=== PATIENT | male | born 1960 | race Caucasian/White ===

== ENCOUNTER → 2016-09-07 | Outpatient (CLI) | payer OTHER ==
--- NOTE | 2016-09-09 12:04 | RADONC ---
RADIATION ONCOLOGY CONSULTATION NOTE DATE: 09/07/2016 CHART NUMBER: [id number] DIAGNOSIS: Prostate cancer. STAGE: IV, widely metastatic. ECOG PERFORMANCE STATUS: 1 CONSULTATION NOTE: Mr. Blanco is a very pleasant, 56-year-old white male with the diagnosis of widely metastatic adenocarcinoma of the prostate who is presenting to us today for consultation regarding the possibilities of palliative radiation therapy to his spine for painful bony metastatic disease. HISTORY OF PRESENT ILLNESS: The patient is actually well-known to our department and was first seen by us on 11/21/2011. At that time, he presented with a diagnosis of a large B-cell lymphoma for consideration of radiation therapy to his neck, supraclavicular, and infraclavicular regions. We treated the patient for a dose of 1000 cGy in four fractions of 250 cGy each from 11/20/2010 through 11/23/2010. The patient did well with his initial treatments. He was then seen by medical oncology and underwent systemic therapy. He returned to us and received a further 3240 cGy in 18 fractions of 180 cGy each from 05/19/2011 through 06/15/2011. When combined with the previous treatment, this brought the cervical lymph nodes bilaterally to a dose of 4240 cGy. The patient did well and was lost to us for followup. He was followed by his medical oncologist. Apparently, the patient developed severe back pain and was found to have a PSA of 1600. I do not have the results of the biopsy at this time. I received a phone call from Dr. Lela Huerta today reporting that he has multiple pain lesions with some invasion of the spinal column but no evidence at this time of cord compression. He is presenting to us for consideration of urgent radiation therapy to this area. PAST MEDICAL HISTORY: The patient's past medical history is positive as noted above for his lymphoma and previous radiation. In addition, the patient had his forehead kicked by a horse in 1965. He has had a cyst removed at the back of his neck. ALLERGIES: The patient has seasonal allergies but no known drug allergies. SOCIAL HISTORY: The patient had smoked two packs of cigarettes per day for 20 years. He quit in 2010. He drinks alcohol socially. FAMILY HISTORY: The patient's family history is positive for a mother with lung and uterine cancer, a father with lung cancer, and a sister with lung cancer. REVIEW OF SYSTEMS: The patient's review of systems is positive for physical limitations secondary to back pain. He also has some occasional dizziness secondary to his pain medications. He has pain in his low back, his mid back, and his rib areas. He denies nausea, vomiting, fevers, chills, night sweats, diplopia, headaches, anxiety or depression, anorexia, weight loss, visual disturbances, chest pain, urinary or bowel difficulties, or neurological problems. PHYSICAL EXAMINATION: The patient is a well-developed, well-nourished male in no acute distress. HEENT exam is normocephalic, atraumatic. Extraocular movements are intact. There is no palpable cervical, supraclavicular, infraclavicular, axillary, or inguinal lymphadenopathy present. Lungs are clear to auscultation and percussion. Heart has a regular rate and rhythm. Abdomen is benign with no hepatosplenomegaly, masses, or tenderness. Rectal examination reveals a normal anal sphincter tone. Skeletal examination reveals no tenderness to pressure or percussion of the bony skeleton. Extremities reveal no clubbing, cyanosis, or edema. Neurologic exam is grossly intact, as is the remainder of the physical examination. ASSESSMENT: I believe the patient is a candidate for external beam radiation therapy, and I have so informed him. I have discussed with the patient in detail the potential benefits as well as possible acute and chronic sequelae of external beam radiation therapy. We discussed the logistics of treatment planning, simulation, and subsequent fractionated daily radiation treatments. I am in the process of gathering all the necessary information in order to undertake treatment planning. We do have a CD with a copy of his MRIs of the spine, which clearly shows metastatic disease to the spine. We are contacting his other institutions in order to obtain the reports on CT scans as well as his recent bone scan. We are also attempting to obtain the actual scans themselves for evaluation. I have tentatively set up the schedule for this patient to be simulated tomorrow morning and begin treatment planning. If we are able to obtain all the needed information, radiation can begin tomorrow. Dr. Huerta has already started the patient on Decadron 4 mg t.i.d. Thank you for allowing us to participate in the care of this very pleasant gentleman. If I could be of any further assistance or provide you with any information, please feel free to contact me at anytime. cc: MD German Pickering MD *Lela Huerta, DO
== END ==
LOC: M ONCR 13:35
PROVIDERS: ATTEND Radiology Radiation Oncology
DX: C61 Malignant neoplasm of prostate (principal); C79.51 Secondary malignant neoplasm of bone

== ENCOUNTER 2016-09-08 08:54 | Outpatient (RCR) | payer BC, OTHER ==
--- NOTE | 2016-09-09 09:44 | RADONC ---
RADIATION ONCOLOGY SIMULATION NOTE DATE: 09/08/2016 CHART NUMBER: [id number] Mr. Blanco was taken to the CT scan for CT simulation of his spinal field. CT was accomplished without difficulty or discomfort. Radiation treatment planning is underway and radiation treatments will begin subsequently. An immobilization device was created and will be used throughout the course of treatment. It was created without difficulty or discomfort. I was physically present throughout the course of CT simulation.
--- NOTE | 2016-09-13 15:25 | RADONC ---
RADIATION ONCOLOGY PROGRESS NOTE: DATE OF SERVICE: 09/13/2016 Mr. Moore is presently at a dose of 900 cGy to his T8 vertebral body and is tolerating treatments quite well at this point with no complaints related to his radiation therapy. He continues to have pain over that spot but is otherwise doing well. REVIEW OF SYSTEMS: The patients review of systems is positive for continued mid back pain but is otherwise noncontributory. He denies nausea, vomiting, fevers, chills, night sweats, diplopia, headaches, anxiety or depression, anorexia, weight loss, visual disturbances, chest pain, urinary or bowel difficulties, bone pain, or neurological problems. PHYSICAL EXAMINATION: The patient's skin is in excellent condition with no evidence of radiation change present. There is no moist or dry desquamation. The remainder of his physical exam remains unchanged. Mr. Blanco is tolerating treatments quite well and radiation will continue as scheduled. I did discuss with the patient his T5 vertebral body, which is very close to our previously treated field. The treatments, therefore, are risky and I have recommended observing this area for now. Radiation can always be added later if he develops pain in the region. The patient reports he is not having any pain in that area.
== END 2016-09-14 ==
LOC: M ONCR 08:54
PROVIDERS: ATTEND Radiology Radiation Oncology
DX: C79.51 Secondary malignant neoplasm of bone (principal); C61 Malignant neoplasm of prostate

== ENCOUNTER → 2016-09-08 | Outpatient (CLI) | payer BC, OTHER | LOC: M RAD 08:21 | PROVIDERS: ATTEND Radiology Radiation Oncology | DX: C61 Malignant neoplasm of prostate (principal) ==

== ENCOUNTER 2016-09-15 14:27 | Outpatient (RCR) | payer BC, OTHER ==
--- NOTE | 2016-09-21 09:31 | RADONC ---
RADIATION ONCOLOGY PROGRESS NOTE DATE: 09/20/2016 CHART NUMBER: [id number]. Mr. Moore is presently at a dose of 2100 cGy to his T-spine and is tolerating treatments quite well at this point with no complaints related to his radiation therapy. He is having no additional back pain or other problems. REVIEW OF SYSTEMS: The patient's review of systems is positive for some continued back pain, but is otherwise noncontributory. He denies nausea, vomiting, fevers, chills, night sweats, diplopia, headaches, anxiety or depression, anorexia, weight loss, visual disturbances, chest pain, urinary or bowel difficulties, bone pain or neurological problems. PHYSICAL EXAMINATION: The patient's skin is in good condition with no evidence of moist or dry desquamation. The remainder of his physical exam remains unchanged. Mr. Moore is tolerating treatments quite well with a reduction in his back pain. Radiation will continue as scheduled.
--- NOTE | 2016-09-25 08:16 | RADONC ---
RADIATION ONCOLOGY TREATMENT SUMMARY: DATE: 09/24/2016 DIAGNOSIS: Prostate cancer. STAGE: Stage is IV, widely metastatic. ECOG PERFORMANCE STATUS: 1 Mr. Blanco is a very pleasant 56-year-old white male with the diagnosis of widely metastatic adenocarcinoma of prostate who presented to us for consideration of palliative radiation therapy to his thoracic spine for painful bony metastatic disease. We treated the patient to his thoracic spine from the levels of T7 through T9 for a total dose of 3000 cGy delivered in 10 fractions of 300 cGy each over 14 elapsed days from 09/09/2016 through 09/23/2016. The patient's spine was treated on a linear accelerator utilizing an 18 MV photon beam prescribed to a depth of 8 cm. Mr. Blanco tolerated his treatments quite well with no difficulties related to his radiation therapy. He was able to complete therapy as prescribed without interruption. The patient is scheduled see me again in 1 month for further followup. He will also continue to be followed by his other physicians as well. cc: MD German Pickering MD *Olga Kligerman, DO
== END 2016-10-15 ==
LOC: M ONCR 14:27
PROVIDERS: ATTEND Radiology Radiation Oncology
DX: C61 Malignant neoplasm of prostate (principal); C79.51 Secondary malignant neoplasm of bone

== ENCOUNTER → 2016-11-03 | Outpatient (CLI) | payer BC, OTHER ==
--- NOTE | 2016-11-04 06:30 | RADONC ---
RADIATION ONCOLOGY FOLLOWUP NOTE DATE: 11/03/2016 CHART NUMBER: [id number] DIAGNOSIS: Prostate cancer stage IV, widely metastatic. ECOG PERFORMANCE STATUS: 1. FOLLOWUP: Mr. Moore is a very pleasant 56-year-old white male with the diagnosis of widely metastatic adenocarcinoma of the prostate who is presenting to us today for routine followup visit 1 month post completion of palliative radiation therapy to his thoracic spine. The patient presents today reporting that his pain is markedly improved. He continues to have some back pain, but overall is feeling generally well. The patient's review of systems is positive for some continued back pain for which he is taking pain medications but is otherwise noncontributory. Denies nausea, vomiting, fevers, chills, night sweats, diplopia, headaches, anxiety or depression, anorexia, weight loss, visual disturbances, chest pain, urinary or bowel difficulties, bone pain, or neurological problems. PHYSICAL EXAMINATION: The patient is a well-developed, well-nourished male in no acute distress. HEENT exam is normocephalic, atraumatic. Extraocular movements are intact. There is no palpable cervical, supraclavicular, infraclavicular, axillary, or inguinal lymphadenopathy present. Lungs are clear to auscultation and percussion. Heart has a regular rate and rhythm. Abdomen is benign with no hepatosplenomegaly, masses, or tenderness. Rectal examination reveals a normal anal sphincter tone. Skeletal examination reveals no tenderness to pressure or percussion of the bony skeleton. Extremities reveal no clubbing, cyanosis, or edema. Neurologic exam is grossly intact, as is the remainder of the physical examination. ASSESSMENT: The patient is clinically doing quite well at this point. He is being followed and managed closely by his other physicians and therefore I have set him up for a routine followup in our office in six months' time. He has been instructed to contact me if I can be of any assistance in the meantime should he have any discomfort. cc: MD German Pickering MD *Olga Kligerman,
== END ==
LOC: M ONCR 10:15
PROVIDERS: ATTEND Radiology Radiation Oncology
DX: C61 Malignant neoplasm of prostate (principal); C79.51 Secondary malignant neoplasm of bone

== ENCOUNTER → 2016-12-16 | Outpatient (CLI) | payer BC, OTHER ==
--- NOTE | 2016-12-16 14:28 | RADONC ---
RADIATION ONCOLOGY CONSULTATION NOTE DATE: 12/16/2016 CHART NUMBER: [id number] DIAGNOSIS: Prostate cancer. Stage: IV, widely metastatic. ECOG performance status 1. CONSULTATION NOTE: Mr. Blanco is a very pleasant 56-year-old white male with the diagnosis of widely metastatic adenocarcinoma of the prostate who is presenting to us today for consideration of palliative radiation therapy to his right femur and LS spine region. HISTORY OF PRESENT ILLNESS:: The patient is actually well-known to our department and just completed a course of palliative radiation therapy to the thoracic vertebral bodies from T7 through T9 on 09/24/2016. Since completion of therapy, the treated area has improved significantly. Indeed, all areas that have been treated in the past have remained free of pain. He has recently been complaining of increased pain which he reports as quite severe in his lumbar sacral spine region as well as over his right hip. A bone scan was done on 08/31/2016 which showed increased uptake in the right proximal femur as well as continued prominence in the lumbar spine areas. This uptake was at L2, L5 and S1. The patient is scheduled to initiate chemotherapy in a few weeks. PAST MEDICAL HISTORY: The patient's past medical history is positive for lymphoma. He also had his forehead kicked by a horse in 1965. ALLERGIES: The patient has no known drug allergies. SOCIAL HISTORY: The patient had smoked two packs of cigarettes per day for 20 years. He quit in 2010. He drinks alcohol socially. FAMILY HISTORY The patient's family history is positive for a mother with lung cancer as well as uterine cancer and a father with lung cancer. He also has a sister with lung cancer. REVIEW OF SYSTEMS: The patient's review of systems is positive for right hip and low back pain. It is otherwise noncontributory. Denies nausea, vomiting, fevers, chills, night sweats, diplopia, headaches, anxiety or depression, anorexia, weight loss, visual disturbances, chest pain, urinary or bowel difficulties, bone pain, or neurological problems. PHYSICAL EXAMINATION: The patient is a well-developed, well-nourished male in no acute distress. HEENT exam is normocephalic, atraumatic. Extraocular movements are intact. There is no palpable cervical, supraclavicular, infraclavicular, axillary, or inguinal lymphadenopathy present. Lungs are clear to auscultation and percussion. Heart has a regular rate and rhythm. Abdomen is benign with no hepatosplenomegaly, masses, or tenderness. Skeletal examination reveals no tenderness to pressure or percussion of the bony skeleton. Extremities reveal no clubbing, cyanosis, or edema. Neurologic exam is grossly intact, as is the remainder of the physical examination. ASSESSMENT: Clearly, the patient is a candidate for external beam radiation therapy and I have so informed him. I have discussed with the patient in detail the potential benefits as well as possible acute and chronic sequelae of external beam radiation therapy. We discussed logistics of treatment planning, simulation and subsequent fractionated daily radiation treatments. I have scheduled the patient for the next available simulation slot and radiation treatments will begin without delay. Following completion of radiation, the patient will be scheduled for further evaluation by his medical oncologist for possible initiation of chemotherapy. Thank you for allowing us to participate in the care of this very pleasant gentleman. If I could be of any further assistance or provide you with any information, please free to contact me anytime. As always warm regards. cc: MD German Pickering MD *Lela Huerta, DO LEON
--- NOTE | 2016-12-17 11:07 | RADONC ---
RADIATION ONCOLOGY SIMULATION NOTE DATE: 12/17/2016 CHART NUMBER: [id number] Mr. Blanco was taken to the CT scan today for CT simulation of his lumbosacral as well as femur vega. CT was accomplished without difficulty or discomfort. Radiation treatment planning is underway and radiation treatments will begin subsequently. An immobilization device was created and will be used throughout the course of treatment. I was physically present throughout the course of CT simulation.
== END ==
LOC: M ONCR 10:56
PROVIDERS: ATTEND Radiology Radiation Oncology
DX: C61 Malignant neoplasm of prostate (principal); C79.51 Secondary malignant neoplasm of bone

== ENCOUNTER 2016-12-17 14:46 | Outpatient (RCR) | payer BC, OTHER ==
--- NOTE | 2016-12-27 09:34 | RADONC ---
RADIATION ONCOLOGY PROGRESS NOTE: DATE: 12/27/2016 CHART NUMBER: [id number]. PROGRESS NOTE: Mr. Blanco underwent his first fraction of radiation today to his right hip as well as to his spine. A dose of 300 cGy was delivered to both sites. The patient tolerated his first fraction without difficulty. He has no new difficulties or problems. He is complaining of bone pain. REVIEW OF SYSTEMS: The patient's review of systems is positive for bone pain but is otherwise noncontributory. Denies nausea, vomiting, fevers, chills, night sweats, diplopia, headaches, anxiety or depression, anorexia, weight loss, visual disturbances, chest pain, urinary or bowel difficulties, bone pain, or neurological problems. PHYSICAL EXAMINATION: Clearly there is no radiation change present over the treated vega at this point. The remainder of his physical exam remains unchanged since time of consultation. Mr. Blanco tolerated his first fraction of radiation to the spine as well as to the hip quite well and radiation will continue as scheduled. MTDD
--- NOTE | 2017-01-04 06:57 | RADONC ---
RADIATION ONCOLOGY PROGRESS NOTE: DATE: 01/03/2017 CHART NUMBER: [id number]. PROGRESS NOTE: Mr. Blanco is presently at a dose of 1800 cGy to his right femur as well as to his lumbar sacral spine and is tolerating treatments quite well at this point with no complaints related to his radiation therapy. He has an improvement in the pain over the treated areas. The patient is however, now complaining of pain in his shoulder and contralateral leg. These areas did not hurt in the past. The patient is scheduled for a bone scan as well as CAT scans in [place] this week and will be bringing the results as well as a CD with the actual images to me by the end of the week for evaluation. The patients review of systems is positive for the above as well as for weight loss. It is otherwise non-contributory. Physical exam: The patient's skin shows no radiation change present. The physical is otherwise unchanged except for weight loss. He is aware that we can treat these other areas if there is indeed disease there. MTDD
--- NOTE | 2017-01-11 07:54 | RADONC ---
RADIATION ONCOLOGY PROGRESS NOTE DATE: 01/10/2017 CHART NUMBER: [id number] Mr. Moore is presently at a dose of 2700 centigrade to both his right hip and femur as well as his lumbar sacral spine. He is tolerating treatments quite well and reports a marked improvement in his back pain and hip pain. REVIEW OF SYSTEMS: The patient's review of systems is positive for some residual back pain but this is improving. It is otherwise noncontributory. Denies nausea, vomiting, fevers, chills, night sweats, diplopia, headaches, anxiety or depression, anorexia, weight loss, visual disturbances, chest pain, urinary or bowel difficulties, bone pain, or neurological problems. PHYSICAL EXAMINATION: The patient's skin is in good condition with no evidence of moist or dry desquamation. There is just some mild erythema present. Overall skin is in good condition. The remainder of the physical exam is unchanged. Overall he is tolerating treatments quite well and radiation will continue as scheduled.
--- NOTE | 2017-01-12 10:15 | RADONC ---
RADIATION ONCOLOGY TREATMENT SUMMARY: DATE: 01/12/2017 CHART NUMBER: [id number]. DIAGNOSIS: Prostate cancer. STAGE: IV. ECOG PERFORMANCE STATUS: 1. TREATMENT SUMMARY: Mr. Blanco is a very pleasant, 56-year-old white male with the diagnosis of widely metastatic adenocarcinoma of prostate who presented to us for consideration of palliative radiation therapy to his right hip and femur as well as his spine. We treated the patient to his right hip for a dose of 3000 cGy delivered in 10 fractions of 300 cGy each over 15 elapsed days, from 12/27/2016 through 01/11/2017. The patient's right hip was treated on a linear accelerator utilizing an 18 MV photon beam via anterior and posterior parallel opposed vega. In addition, we treated the patient to his spine from the level of L1 through the SI joints. This region was treated on the linear accelerator utilizing an 18 MV photon beam via anterior and posterior parallel opposed vega. We delivered a dose of 3000 cGy in 10 fractions over 15 elapsed days, from 12/27/2016 through 01/11/2017. We used the above-mentioned posterior field prescribed to a depth of 8 cm. Mr. Blanco tolerated his treatments quite well with no difficulties related to his radiation therapy. Indeed, he did have an improvement in his back pain throughout the course of treatment. I have scheduled the patient see me again in 1 month for further followup. He will also continue to be followed by his other physicians as well. cc: MD Lela Pickering MD Jack Rush, MD
== END 2017-01-14 ==
LOC: M ONCR 14:46
PROVIDERS: ATTEND Radiology Radiation Oncology
DX: C79.51 Secondary malignant neoplasm of bone (principal); C61 Malignant neoplasm of prostate

== ENCOUNTER → 2016-12-17 | Outpatient (CLI) | payer BC, OTHER | LOC: M RAD 10:03 | DX: C85.10 Unspecified B-cell lymphoma, unspecified site (principal) ==

== ENCOUNTER → 2017-02-09 | Outpatient (CLI) | payer BC, OTHER ==
[~2017-02-09] MED LIST: ASPI81TA85 PO; AVEL1TAB3 PO; CALC1TAB26 PO; CYCL10TA PO; DEXA4TA; DEXA4TA PO; FENO160T10 PO; GING500C3 PO; IRON65TA PO; LIDO2.5C15; LIDO2.5C15 TOP; LORA10TA2 PO; LOSA100T5 PO; MAGN250T9 PO; MELO15TA4; MELO15TA4 PO; MIRA33504 PO; MULTTAB23 PO; OMEP20CA3; OMEP20CA3 PO; ONDA4TAB6; ONDA4TAB6 PO; OXYC-405 PO; OXYC-517; OXYC-517 PO; POLY1POW4 PO; PRED1TABL PO; PROAAER10 INH; TURM500C PO; VITA10006 PO; VITA80003 PO
--- NOTE | 2017-02-09 13:55 | RADONC ---
RADIATION ONCOLOGY CONSULTATION NOTE DATE: 02/09/2017 CHART NUMBER: [id number] DIAGNOSIS: Prostate cancer. STAGE: IV. ECOG PERFORMANCE STATUS: 0 CONSULTATION NOTE: Mr. Blanco is a very pleasant 57-year-old white male with the diagnosis of widely metastatic adenocarcinoma of the prostate who is presenting to us today for routine followup visit 1 month post completion of palliative radiation therapy to his right hip. The patient presents today reporting that he is doing quite well with no complaints at this time related to his radiation therapy or disease. He has no having no hip for bone pain. The patient reports complete resolution of the pain in the treated areas. REVIEW OF SYSTEMS: The patient's review of systems is largely noncontributory. He denies nausea, vomiting, fevers, chills, night sweats, diplopia, headaches, anxiety or depression, anorexia, weight loss, visual disturbances, chest pain, urinary or bowel difficulties, bone pain or neurological problems. PHYSICAL EXAMINATION: The patient is a well-developed, well-nourished male in no acute distress. HEENT exam is normocephalic, atraumatic. Extraocular movements are intact. There is no palpable cervical, supraclavicular, infraclavicular, axillary, or inguinal lymphadenopathy present. Lungs are clear to auscultation and percussion. Heart has a regular rate and rhythm. Abdomen is benign with no hepatosplenomegaly, masses, or tenderness. Skeletal examination reveals no tenderness to pressure or percussion of the bony skeleton. Extremities reveal no clubbing, cyanosis, or edema. Neurologic exam is grossly intact as is the remainder of the physical examination. ASSESSMENT: The patient is clinically stable at this time. He is receiving systemic therapy and therefore I have scheduled him for a routine followup in our office in six months' time. He will continue to be followed by his medical oncologist and other physicians in the meantime. cc: MD Lela Pickering MD Jack Rush, MD
== END ==
LOC: M ONCR 11:33
PROVIDERS: ATTEND Radiology Radiation Oncology
DX: C61 Malignant neoplasm of prostate (principal); C79.51 Secondary malignant neoplasm of bone

== ENCOUNTER 2017-04-13 05:27 | Inpatient (IN) | payer BC, OTHER ==
[~2017-04-13] VITALS: Ht 180.3 cm; Wt 113.5 kg
[2017-04-13] MEDS ORDERED: PRED1TABL PO ×2 (05:48→08:53)
[2017-04-13] MEDS ORDERED: MELO15TA4 (05:48)
[2017-04-13] MEDS ORDERED: PROAAER10 INH (05:48)
[2017-04-13] MEDS ORDERED: ONDA4TAB6 (05:48)
[2017-04-13] MEDS ORDERED: LIDO2.5C15 (05:48)
[2017-04-13] MEDS ORDERED: OMEP20CA3 (05:48)
[2017-04-13] MEDS ORDERED: OXYC-405 PO ×2 (05:48→08:53)
[2017-04-13] MEDS ORDERED: OXYC-517 (05:48)
[2017-04-13] MEDS ORDERED: DEXA4TA (05:48)
[2017-04-13] MEDS ORDERED: LOSA100T5 PO ×2 (05:48→09:00)
[2017-04-13] MEDS ORDERED: POLY1POW4 PO (05:48)
[2017-04-13] MEDS ORDERED: FENO160T10 PO ×2 (05:48→08:53)
[2017-04-13] MEDS ORDERED: NS 500 ML IV ONE (06:30)
[2017-04-13] MEDS ORDERED: ACETAMINOPHEN 325 MG TAB PO ONE (06:30)
[2017-04-13 06:46] LABS: ABG BASE EXCESS 3.4 (-2.0-2.0); ABG HCO3 26.1 MEQ/L (22.0-26.0); ABG PARTIAL PRESSURE O2 77.7 mmHg (75.0-100.0); ABG STANDARD HCO3 27.5 MEQ/L (22.0-26.0); ABG TOTAL CO2 27.1 MEQ/L (22.0-29.0)
[2017-04-13 06:47] LABS: BASO % 0.2 % (0.0-1.0); EOS % 0.1 % (0.0-3.0); LYMPH % 3.1 % (24.0-44.0); MEAN CORPUSCULAR HEMOGLOBIN 26.2 pg (27.0-33.0); MEAN CORPUSCULAR HGB CONC 30.6 g/dl (32.0-36.5); MEAN CORPUSCULAR VOLUME 85.5 fl (80.0-96.0); MONO # 0.5 10^3/uL (0.0-0.8); MONO % 4.7 % (0.0-5.0); NEUTROPHILS % 84.6 % (36.0-66.0); PLATELET COUNT, AUTOMATED 391 10^3/uL (150-450); RED CELL DISTRIBUTION WIDTH 18.7 % (11.5-14.5); WHITE BLOOD COUNT 10.7 10^3/uL (4.0-10.0)
[2017-04-13 06:54] LABS: IMMATURE GRANULOCYTE % 7.3 % (0-0); LYMPH # 0.3 10^3/uL (1.5-4.5)
[2017-04-13 07:08] LABS: ALBUMIN 2.9 GM/DL (3.2-5.2); ALBUMIN/GLOBULIN RATIO 0.88 (1.00-1.93); ALKALINE PHOSPHATASE 99 U/L (45-117); ALT/SGPT 29 U/L (12-78); ANION GAP 8 MEQ/L (8-16); AST/SGOT 146 U/L (15-37); BILIRUBIN,DIRECT 0.1 MG/DL (0.0-0.2); BILIRUBIN,TOTAL 0.2 MG/DL (0.2-1.0); BLOOD UREA NITROGEN 24 MG/DL (7-18); CALCIUM LEVEL 8.6 MG/DL (8.5-10.1); CARBON DIOXIDE LEVEL 27 MEQ/L (21-32); CHLORIDE LEVEL 100 MEQ/L (98-107); CREATININE FOR GFR 0.85 MG/DL (0.70-1.30); GLOMERULAR FILTRATION RATE > 60.0 (>56); GLUCOSE, FASTING 211 MG/DL (70-105); POTASSIUM SERUM 4.5 MEQ/L (3.5-5.1); SODIUM LEVEL 135 MEQ/L (136-145); TOTAL PROTEIN 6.2 GM/DL (6.4-8.2)
--- NOTE | 2017-04-13 07:37 | REP ---
Clinical: Fever and dyspnea. Technique: PA and lateral. Comparison: 06/14/2008. Findings: Mediastinum and cardiac silhouette are normal. [id number] with tip in the SVC. Lung vega demonstrate chronic-appearing interstitial changes superimposed left lower lobe atelectasis and/or infiltrate cannot be excluded. No effusion. No pneumothorax. Skeletal structures are intact. Impression: Cannot exclude chronic changes with superimposed basilar atelectasis/infiltrate (left greater than right). Signed by Markell Rutherford MD 04/13/2017 07:28 A
[2017-04-13] MEDS ORDERED: oxyCODONE 10 MG CR TAB PO ONE (08:15)
[2017-04-13] MEDS ORDERED: oxyCODONE 40 MG CR TAB PO ONE (08:15)
[2017-04-13] MEDS ORDERED: SODIUM CHLORIDE 0.9% 1000 ML IV ONE (08:15)
[2017-04-13] MEDS ORDERED: MOXIFLOXACIN HCL 400 MG in APPROPRIATE DILUENT 1 EA IV ONE (08:30)
[2017-04-13] MEDS ORDERED: ASPI81TA85 PO (08:53)
[2017-04-13] MEDS ORDERED: VITA80003 PO (08:53)
[2017-04-13] MEDS ORDERED: MELO15TA4 PO (08:53)
[2017-04-13] MEDS ORDERED: DEXA4TA PO (08:53)
[2017-04-13] MEDS ORDERED: TURM500C PO (08:53)
[2017-04-13] MEDS ORDERED: LORA10TA2 PO (08:53)
[2017-04-13] MEDS ORDERED: GING500C3 PO (08:53)
[2017-04-13] MEDS ORDERED: OXYC-517 PO (08:53)
[2017-04-13] MEDS ORDERED: VITA10006 PO (08:53)
[2017-04-13] MEDS ORDERED: IRON65TA PO (08:53)
[2017-04-13] MEDS ORDERED: MAGN250T9 PO (08:55)
[2017-04-13] MEDS ORDERED: MIRA33504 PO (08:55)
[2017-04-13] MEDS ORDERED: OMEP20CA3 PO (08:56)
[2017-04-13] MEDS ORDERED: MULTTAB23 PO (08:56)
[2017-04-13] MEDS ORDERED: MOXIFLOXACIN HCL 400 MG in APPROPRIATE DILUENT 1 EA IV SCH (09:00)
[2017-04-13] MEDS ORDERED: LIDO2.5C15 TOP (09:02)
[2017-04-13] MEDS ORDERED: ONDA4TAB6 PO (09:03)
[2017-04-13] MEDS ORDERED: CALC1TAB26 PO (09:03)
[2017-04-13] MEDS ORDERED: EMLA CREAM 5GM (LIDOCAINE/PRILOCAINE) TOP PRN (09:15)
[2017-04-13] MEDS ORDERED: ONDANSETRON 4 MG ORAL DISINTEGRATING TAB (S0181) PO PRN (09:15)
[2017-04-13] MEDS ORDERED: MIRALAX *UNIT DOSE* 17GM PACKET PO PRN (09:15)
[2017-04-13] MEDS ORDERED: oxyCODONE 5MG TAB PO PRN (09:15)
[2017-04-13] MEDS ORDERED: ALBUTEROL 90 MCG/ACT 8GM HFA INHALER INH PRN (09:15)
[2017-04-13 11:40] VITALS: BP 165/91
[2017-04-13] MEDS: ASPIRIN 81 MG ENTERIC TAB PO SCH (12:15)
[2017-04-13] MEDS: ASCORBIC ACID 500 MG TAB PO SCH (12:15)
[2017-04-13] MEDS: FERROUS SULFATE 325MG TAB PO SCH (12:15)
[2017-04-13] MEDS: OMEPRAZOLE 20 MG CAP PO SCH (12:15)
[2017-04-13] MEDS: hydroCHLOROthiazide 12.5 MG CAPSULE PO SCH (12:16)
[2017-04-13] MEDS: MAGNESIUM OXIDE 400 MG TAB (MAG-OX) PO SCH (12:16)
[2017-04-13] MEDS: LOSARTAN 50 MG TAB PO SCH (12:17)
[2017-04-13] MEDS: LORATADINE 10 MG TAB PO SCH (12:17)
[2017-04-13] MEDS ORDERED: CYCLOBENZAPRINE 10 MG TAB PO PRN (13:15)
[2017-04-13] MEDS: MELOXICAM (MOBIC) 7.5 MG TAB PO SCH (13:55)
[2017-04-13] MEDS: ENOXAPARIN 40 MG/0.4 ML SYRINGE (J1650) SC SCH (13:55)
[2017-04-13 14:00] VITALS: BP 143/71
--- NOTE | 2017-04-13 18:46 | HPE ---
DATE OF ADMISSION: 04/13/2017 PRIMARY CARE PHYSICIAN: Dr. German Mcdonald ADMITTING PHYSICIAN: Dr. Joleen Avila CHIEF COMPLAINT: Dyspnea and generalized pain. HISTORY OF PRESENT ILLNESS: This is a 57-year-old man with a history of metastatic prostate cancer currently being treated with chemotherapy, who received his chemotherapy yesterday and then overnight developed shallow breathing and subjective fevers. His states that he also looked red in the face. He was brought to the emergency department for evaluation where he was noted to have possible bibasilar infiltrate versus atelectasis, left greater than right, and an elevated white blood cell count of 10.7. The emergency room physician consulted with his oncologist, Dr. Huerta , who recommended admission and treatment for pneumonia with moxifloxacin. At the time of my evaluation, patient states he feels tired and has chronic pain in his hips, knees and shoulders. Otherwise he denies any nausea, vomiting, fevers, chills. Denies weakness. He does admit to a generalized malaise. MEDICAL HISTORY: 1. History of lymphoma, in remission. 2. Prostate cancer with metastases status post radiation to back and hips. Currently undergoing chemotherapy. 3. Thyroid nodule. 4. Allergies. 5. Asthma. 6. Impaired glucose tolerance. 7. Anemia due to chemotherapy. SURGICAL HISTORY: 1. Port insertion November 2010. 2. Thyroid biopsy . 3. Lymph node biopsy November 2010. 4. Plastic surgery to forehead as a child after being kicked by a horse. 5. Mohs surgery for basal cell carcinoma on right nose. 6. Port insertion on December 2016. HOME MEDICATIONS: - fenofibrate 160 mg by mouth daily - losartan hydrochlorothiazide 100/25 mg talk half tablet by mouth daily - omeprazole 20 mg by mouth twice daily - multivitamin one tablet by mouth daily - vitamin C 500 mg by mouth daily - calcium with Vitamin D one tablet by mouth daily - aspirin 81 mg by mouth daily - loratadine 10 mg by mouth once daily as needed for allergies - cyclobenzaprine 10 mg three times daily as needed for muscle spasm - Prednisone 4 mg twice a day - Dexamethasone 4 mg two tablets twice a day on the day of and after chemotherapy - Vitamin A 8000 units by mouth daily - iron 325 mg one tablet by mouth daily - magnesium 250 mg by mouth daily - Lupron intramuscular injection one every three months - Zofran 4 mg every 6 hours as needed for nausea - OxyContin 40 mg every 12 hours - oxycodone 4 mg every 4 hours as needed for pain - Zometa 4 mg per 100 mL solution IV every three months - Pro Air two puffs as needed every 4 hours - meloxicam 15 mg one tablet by mouth daily - Aranesp was started on 04/12/2017 and patient states he is to get this every three weeks - Taxotere chemotherapy every three weeks FAMILY HISTORY: Father of lung cancer with metastases to his brain and mother of lung cancer metastases. SOCIAL HISTORY: Patient is a former smoker who quit in November 2010, prior to that he smoked two packs per day for 20 years. He states he has an occasional alcohol drink a couple times a month. He denies any drug use. ALLERGIES: LIPITOR, reaction is myalgias. GEMFIBROZIL, reaction is myalgias. REVIEW OF SYSTEMS: GENERAL: Admits to malaise, subjective fevers and chills. ENT: Denies throat pain, ear pain, rhinorrhea. NECK: Denies lymphadenopathy. CARDIOVASCULAR: Denies chest pain, palpitations, leg edema. PULMONARY: Admits to shallow breathing and dyspnea, though none at present; admits to occasional nonproductive cough. Denies wheezing. GASTROINTESTINAL: Denies nausea, vomiting, constipation, diarrhea or blood ins tool. : Denies difficult urinating, urinary frequency, dysuria. HEME: Denies easy bleeding or bruising . MUSCULOSKELETAL: Admits to chronic pain in hips, knees, elbows and shoulder. NEURO: Denies difficulty with gait, focal numbness or weakness. PHYSICAL EXAMINATION: Initial vital signs temperature 100.1, pulse 98, respiratory rate 20, blood pressure 151/88, pulse oximetry 94% on room air. Patient has remained afebrile in the emergency department. GENERAL: Well-nourished, a non-distended well-hydrated, no apparent distress. PSYCHE: Appropriate mood and affect. HEENT: Head is normocephalic, atraumatic. Eyes: Pupils equal, round, reactive to light.. Extraocular movements are intact. Tympanic membranes are pearly bilaterally with no fluid behind them. Nose is symmetric with no nasal mucosal edema, erythema or nasal discharge. Oral cavity no oropharyngeal lesions. Neck is supple. No thyromegaly or masses. No lymphadenopathy. LUNGS: Clear to auscultation bilaterally with no wheezes, rales or rhonchi. Normal respiratory effort. Decreased air movement in bilateral bases. HEART: Regular rate and rhythm. Normal S1, S2. No murmurs, rubs or gallops. No lower extremity edema. ABDOMEN: Soft, non-tender to light and deep palpation. No guarding or rebound tenderness. No hepatosplenomegaly and bowel sounds are positive in all four quadrants. MUSCULOSKELETAL : Muscle strength is 5/5 with bilateral senior software qa engineer strength, extension and flexion of bilateral shoulders, ankles, wrists, knees. PERIPHERAL PULSES: 2+radial and pedal pulses bilaterally. SKIN: No rashes or bruises noted. NEURO: Alert and oriented to person, place, situation. Cranial nerves II through XII are grossly intact. Sensation to gross touch is intact in all four extremities. LABS: WBC 10.7, hemoglobin 7.6, platelets 391, hematocrit 24.8. Blood gas pH 7.530, PCo2 32, PO2 77.7, HCO3 26.1. Chemistry: Sodium 135, potassium 4.5, chloride 100, bicarbonate 27, BUN 24, creatinine 0.085, glucose 211, calcium 8.6, total bilirubin 0.2, direct bilirubin 0.1. AST 146, ALT 29, alkaline phosphatase 99, total protein 6.2, albumin 2.9. Lactic acid 2.6. Influenza and respiratory swabs were negative. Urine and blood cultures were drawn and are pending. IMAGING: Chest x-ray shows lung vega demonstrate chronic appearing interstitial changes superimposed left lower lobe atelectasis and/or infiltrate cannot be excluded. No effusion. No pneumothorax. Skeletal structures are intact. ASSESSMENT AND PLAN: This is 57-year-old with 1. Left lower lobe community acquired pneumonia: Chest x-ray is unable to differentiate between infiltrate or atelectasis, however white blood cell count is mildly elevated and given his immunosuppression with chemotherapy and underlying comorbidities I agree with his oncologist Dr. Huerta that he should be monitored in the hospital. He will be admitted to a medical floor. We will continue Avelox which was started in the emergency department for his pneumonia. We will monitor CBC daily. His lactic acid level was a bit elevated and will be repeated in 4 hours. He is not septic, and does not meet SIRS criteria, as vital signs are within normal limits. 2. Anemia: Patient's hemoglobin is currently 7.6. Emergency room department physician did discuss this with his oncologist, who states that this is consistent with his recent baseline per her records and that she believes this is due to his chemotherapy. Patient states that she started him on Aranesp yesterday for chemotherapy- induced anemia. We will continue to monitor CBC daily. 3. Prostate cancer with metastases: Patient is currently being treated with chemotherapy for this. He also has received radiation for treatment of metastatic lesions in his hips and back. He is on multiple pain medications to help with this including OxyContin, oxycodone and cyclobenzaprine and Meloxicam which we will continue while he is here. He also received Lupron every three months as an outpatient. 4. Asthma. We will continue his Pro Air as needed. 5. History of lymphoma: This is stable and not active currently. 6. Impaired glucose tolerance: Patient states that his oncologist thinks this is due to him taking chronic steroids. As he will be on his home dose of steroids here, we will just check daily fasting glucose levels with his basic metabolic panel. 7. History of thyroid nodule; Patient states this is stable. No work up is being done for this. 8. Deep vein thrombosis prophylaxis: enoxaparin MTDD
[2017-04-13] MEDS: oxyCODONE 40 MG CR TAB PO SCH (20:17)
[2017-04-13] MEDS ORDERED: ACETAMINOPHEN TAB 650MG DOSE (2X325MG) PO PRN (21:30)
[2017-04-13 22:00] VITALS: BP 147/78
[2017-04-14 06:00] VITALS: BP 121/84
[2017-04-14 06:57] LABS: MEAN CORPUSCULAR HEMOGLOBIN 26.8 pg (27.0-33.0); MEAN CORPUSCULAR HGB CONC 30.9 g/dl (32.0-36.5); MEAN CORPUSCULAR VOLUME 86.6 fl (80.0-96.0); RED CELL DISTRIBUTION WIDTH 18.8 % (11.5-14.5); WHITE BLOOD COUNT 7.4 10^3/uL (4.0-10.0)
[2017-04-14 07:24] LABS: ANION GAP 5 MEQ/L (8-16); BLOOD UREA NITROGEN 15 MG/DL (7-18); CALCIUM LEVEL 8.6 MG/DL (8.5-10.1); CARBON DIOXIDE LEVEL 29 MEQ/L (21-32); CHLORIDE LEVEL 101 MEQ/L (98-107); CREATININE FOR GFR 0.64 MG/DL (0.70-1.30); GLOMERULAR FILTRATION RATE > 60.0 (>56); GLUCOSE, FASTING 238 MG/DL (70-105); POTASSIUM SERUM 4.5 MEQ/L (3.5-5.1); SODIUM LEVEL 135 MEQ/L (136-145)
[2017-04-14] MEDS ORDERED: OCUVITE 1 TAB PO SCH (09:00)
[2017-04-14] MEDS ORDERED: predniSONE 1 MG TAB PO SCH (09:00)
[2017-04-14] MEDS ORDERED: MOXIFLOXACIN HCL 400 MG in APPROPRIATE DILUENT 1 EA IV SCH (09:00)
[2017-04-14] MEDS: FERROUS SULFATE 325MG TAB PO SCH (09:57)
[2017-04-14] MEDS: ENOXAPARIN 40 MG/0.4 ML SYRINGE (J1650) SC SCH (09:57)
[2017-04-14] MEDS: ASCORBIC ACID 500 MG TAB PO SCH (09:58)
[2017-04-14] MEDS: ASPIRIN 81 MG ENTERIC TAB PO SCH (09:58)
[2017-04-14] MEDS: MELOXICAM (MOBIC) 7.5 MG TAB PO SCH (09:58)
[2017-04-14] MEDS: oxyCODONE 40 MG CR TAB PO SCH (09:59)
[2017-04-14] MEDS: LORATADINE 10 MG TAB PO SCH (12:04)
[2017-04-14] MEDS: hydroCHLOROthiazide 12.5 MG CAPSULE PO SCH (12:04)
[2017-04-14 12:05] VITALS: BP 135/78
[2017-04-14] MEDS: MAGNESIUM OXIDE 400 MG TAB (MAG-OX) PO SCH (12:05)
[2017-04-14] MEDS: LOSARTAN 50 MG TAB PO SCH (12:05)
[2017-04-14] MEDS: OMEPRAZOLE 20 MG CAP PO SCH (12:05)
[2017-04-14] MEDS ORDERED: CYCL10TA PO (12:32)
[2017-04-14] MEDS ORDERED: AVEL1TAB3 PO (12:32)
[2017-04-14 14:00] VITALS: BP 128/60
--- NOTE | 2017-04-14 15:58 | DSES ---
DATE OF ADMISSION: 04/13/2017 DATE OF DISCHARGE: 04/14/2017 BRIEF HISTORY AND PHYSICAL: The patient is a 57-year-old patient with a history of metastatic prostate cancer being treated with chemotherapy who received his chemotherapy on the day prior to admission and then developed shallow breathing and fevers, which he relates to pain in his ribs where he has metastatic disease. He often gets significant pain in the bony metastatic areas, the day or two following chemotherapy, and because of the pain in his ribs, he had trouble taking deep breaths and was somewhat struggling to breathe according to his who then brought him to the emergency room. PAST MEDICAL HISTORY: Significant for: 1. Lymphoma, in remission. 2. Prostate cancer with metastasis, status post radiation to the back and hips, currently undergoing chemotherapy. 3. He has a thyroid nodule. 4. He has allergies. 5. Asthma. 6. Impaired fasting glucose. 7. Anemia due to chemotherapy. PERTINENT LABORATORY DATA ON ADMISSION: White count 10.7, hemoglobin 7.6, platelets 391,000. Sodium 135, potassium 4.5, BUN 24, creatinine 0.85, glucose 211, AST 146, ALT 49 , alkaline phosphatase 99, bilirubin was normal, albumin is 2.9. Influenza respiratory swabs were negative. Chest x-ray showed chronic-appearing interstitial changes with superimposed left lower lobe atelectasis and/or infiltrate could not be excluded. HOSPITAL COURSE: 1. The patient was admitted for a left lower lobe community-acquired pneumonia. He likely developed some atelectasis related to splinting from rib pain which then perhaps developed into an early pneumonia. He was placed on Avelox and his white count normalized. He did have a fever the night before discharge and it has come down to 99.6. He does describe that he often has fevers in the day or two post chemotherapy and that it is not unusual for him. His rib pain is improved with oxycodone and he is oxygenating well with oxygen saturations of 94 % on room air at the time of discharge. He feels comfortable. He does not have a cough and he would like to go home. He will go home on Avelox for seven more days. Of note, his blood cultures were negative as were his urine cultures and respiratory panel was also negative. 2. Anemia secondary to chemotherapy. He received Aranesp, I believe he told me two days ago. His hemoglobin is rising. It was 7.6 on admission and it is 8.0 on the date of discharge. 3. Prostate cancer with metastasis, status post chemotherapy. This is per oncology. DISPOSITION: He is stable for discharge home to followup with Dr. Mcdonald next week and his oncologist as per their office. MEDICATIONS: - Avelox 400 mg daily for seven days - cyclobenzaprine 10 mg every eight hours as needed for muscle spasms - albuterol two puffs as needed for shortness of breath - ascorbic acid 1000 mcg daily - aspirin 81 mg daily - calcium plus D one tablet daily - tumeric 500 mg daily - dexamethasone 8 mg twice a day, I believe he takes that only around his chemotherapy and then he is normally on the prednisone - fenofibrate 160 mg daily - yoko 500 mg daily - iron 325 mg daily - topical lidocaine as needed - loratadine 10 mg daily - Losartan 0.5 mg daily - magnesium 250 mg daily - meloxicam 15 mg daily - multivitamin daily - omeprazole 20 mg daily - Zofran as needed - oxycodone ER 40 mg twice a day - oxycodone 5 mg 1-2 tablets every two hours as needed for pain - MiraLax 17 grams daily - prednisone 4 mg twice a day - vitamin A 8000 international units daily DISCHARGE DIAGNOSES: 1. Left lower lobe community-acquired pneumonia. 2. Rib pain secondary to metastatic disease. 3. Anemia secondary to chemotherapy. 4. Metastatic prostate cancer. MTDD
== END 2017-04-14 17:57 | disposition home or self-care (01) | DRG 139 ==
LOC: M ED 05:27 → M ED INP 08:27 → M MSPAV 11:52
PROVIDERS: ADMIT Family Medicine; ATTEND Family Medicine
DX: J18.9 Pneumonia, unspecified organism (principal); C79.51 Secondary malignant neoplasm of bone; C61 Malignant neoplasm of prostate; D64.81 Anemia due to antineoplastic chemotherapy; E04.1 Nontoxic single thyroid nodule; J45.909 Unspecified asthma, uncomplicated; Z79.899 Other long term (current) drug therapy; Z79.82 Long term (current) use of aspirin; Z88.8 Allergy status to other drugs, medicaments and biological substances; R73.01 Impaired fasting glucose

== ENCOUNTER → 2017-09-20 | Outpatient (CLI) | payer BC | LOC: M ONCR 08:50 | DX: C61 Malignant neoplasm of prostate (principal); C79.51 Secondary malignant neoplasm of bone ==

== ENCOUNTER → 2017-09-26 | Outpatient (CLI) | payer BC, OTHER | LOC: M RAD 12:56 | DX: C79.31 Secondary malignant neoplasm of brain (principal); Z91.048 Other nonmedicinal substance allergy status ==

== ENCOUNTER → 2017-09-28 | Outpatient (CLI) | payer BC, OTHER ==
[2017-09-28 16:09] LABS: INR 0.93; PROTHROMBIN TIME 12.5 SECONDS (12.4-14.5)
[2017-09-28 16:10] LABS: PARTIAL THROMBOPLASTIN TIME 25.2 SECONDS (26.8-37.9)
== END ==
LOC: M LAB 15:16
DX: C61 Malignant neoplasm of prostate (principal)

== ENCOUNTER → 2017-09-29 | Outpatient (CLI) | payer BC, OTHER | LOC: M RADPRO 14:05 | DX: C85.10 Unspecified B-cell lymphoma, unspecified site (principal); C79.31 Secondary malignant neoplasm of brain; C79.51 Secondary malignant neoplasm of bone; Z79.899 Other long term (current) drug therapy | CPT/HCPCS: 62272 ==

== ENCOUNTER 2017-10-11 14:00 | Emergency (ER) | payer BC, OTHER ==
[2017-10-11] MEDS: NS 1,000 ML IV (14:53)
[2017-10-11] MEDS: MECLIZINE 25 MG TABLET PO (14:58)
[2017-10-11 15:14] LABS: HEMATOCRIT 37.7 % (42.0-52.0); HEMOGLOBIN 12.2 g/dl (14.0-18.0); MEAN CORPUSCULAR HGB CONC 32.4 g/dl (32.0-36.5); MEAN CORPUSCULAR VOLUME 86.5 fl (80.0-96.0); PLATELET COUNT, AUTOMATED 242 10^3/uL (150-450); RED BLOOD COUNT 4.36 10^6/uL (4.30-6.10); RED CELL DISTRIBUTION WIDTH 18.7 % (11.5-14.5); WHITE BLOOD COUNT 10.6 10^3/uL (4.0-10.0)
[2017-10-11 15:30] LABS: INR 0.94; PROTHROMBIN TIME 12.6 SECONDS (12.4-14.5)
[2017-10-11 15:31] LABS: ANION GAP 9 MEQ/L (8-16); BLOOD UREA NITROGEN 23 MG/DL (7-18); CARBON DIOXIDE LEVEL 25 MEQ/L (21-32); CHLORIDE LEVEL 103 MEQ/L (98-107); CREATININE FOR GFR 0.71 MG/DL (0.70-1.30); GLOMERULAR FILTRATION RATE > 60.0 (>56); GLUCOSE, FASTING 156 MG/DL (70-100); POTASSIUM SERUM 4.1 MEQ/L (3.5-5.1); SODIUM LEVEL 137 MEQ/L (136-145)
== END 2017-10-11 16:52 | disposition home or self-care (01) ==
LOC: M ED 14:00
DX: R42 Dizziness and giddiness (principal); I10 Essential (primary) hypertension; J45.909 Unspecified asthma, uncomplicated; E78.5 Hyperlipidemia, unspecified; Z87.891 Personal history of nicotine dependence; Z82.49 Family history of ischemic heart disease and other diseases of the circulatory system; Z79.82 Long term (current) use of aspirin; Z79.899 Other long term (current) drug therapy
CPT/HCPCS: 70450

== ENCOUNTER 2017-10-17 10:15 | Outpatient (RCR) | payer BC, OTHER | END 2017-11-14 | LOC: M ONCR 10:15 | DX: C79.31 Secondary malignant neoplasm of brain (principal); C61 Malignant neoplasm of prostate; C83.31 Diffuse large B-cell lymphoma, lymph nodes of head, face, and neck; C79.51 Secondary malignant neoplasm of bone | CPT/HCPCS: 77336 ==